=== PATIENT | female | born 1990 | race Caucasian/White ===

== ENCOUNTER 2016-11-22 18:43 | Emergency (ER) | payer SELFPAY ==
[2016-11-22] MEDS ORDERED: MULTIVITAMINS 1,000 ML IV ONE (20:18)
[2016-11-22] MEDS ORDERED: SODIUM CHLORIDE 0.9% 1,000 ML ONE (20:19)
[2016-11-22 20:22] LABS: BASO % 0.7 % (0.2-1.0); EOS # 0.1 (0.0-0.5); EOS % 2.2 % (0.9-2.9); HEMATOCRIT 38.4 % (37.0-47.0); HEMOGLOBIN 12.7 gm/l (12.0-16.0); IMM NEUT% 0.3 % (0-1); LYMPH # 2.3 (1.0-4.8); LYMPH % 38.5 % (15-45); MEAN CELL VOLUME 93.9 fl (81.0-99.0); MEAN CORPUSCULAR HEMOGLOBIN 31.1 pg (27.0-31.0); MEAN CORPUSCULAR HGB CONC 33.1 g/dl (33.0-37.0); MEAN PLATELET VOLUME 9.2 fl (7.4-10.4); MONO # 0.4 (0.0-0.8); NEUT % 51.3 % (43-75); PLATELET COUNT 271 K/mm3 (130-400); RED CELL DISTRIBUTION WIDTH 11.8 % (11.5-14.5)
[2016-11-22 20:30] LABS: URINE BILIRUBIN NEGATIVE (NEGATIVE); URINE BLOOD NEGATIVE (NEGATIVE); URINE GLUCOSE (UA) NEGATIVE (NEGATIVE); URINE LEUKOCYTE ESTERASE NEGATIVE (NEGATIVE); URINE NITRITE NEGATIVE (NEGATIVE); URINE PROTEIN NEGATIVE (NEGATIVE); URINE UROBILINOGEN NORMAL (0-1 mg/dl)
[2016-11-22 20:36] LABS: HCG,QUALITATIVE URINE NEGATIVE
[2016-11-22 20:38] LABS: URINE APPEARANCE CLOUDY; URINE COLOR YELLOW
[2016-11-22 20:42] LABS: ALB/GLOB RATIO 1.5 (>1.0); ALBUMIN 4.1 gm/dL (3.5-5.7); CALCIUM 9.4 mg/dL (8.6-10.3)
== END 2016-11-22 21:20 | disposition home or self-care (01) ==
LOC: ED 18:43
DX: R42 Dizziness and giddiness (principal); J45.909 Unspecified asthma, uncomplicated; F17.210 Nicotine dependence, cigarettes, uncomplicated
CPT/HCPCS: 81025; 85025; 80053; 81003; 99283 ×2; 93005; J7030